=== PATIENT | female | born 1960 | race Caucasian/White ===

== ENCOUNTER 2016-07-31 12:50 | Emergency (ER) | payer MEDICARE ==
--- NOTE | 2016-07-31 13:37 | ER Document Report ---
ED Medical Screen (RME) - General Stated Complaint: BACK PAIN Notes: onset: on/off starting right flank pain with radiation to her groin nausea, diarrhea urinating less still has her gall bladder and appendix I have greeted and performed a rapid initial assessment of this patient. A comprehensive ED assessment and evaluation of the patient, analysis of test results and completion of the medical decision making process will be conducted by additional ED providers. TRAVEL OUTSIDE OF THE [place] IN LAST 30 DAYS: No - Related Data Allergies/Adverse Reactions: chlorpheniramine maleate [From Decongest Multi-Action] Allergy (Verified 13:36) cyclobenzaprine HCl [From Flexeril] Allergy (Verified 07/31/16 13:36) pseudoephedrine HCl [From Decongest Multi-Action] Allergy (Verified 07/31/16 13: 36) Past Medical History - Past Medical History Cardiac Medical History: Reports: Hx Hypertension Renal/ Medical History: Reports: Hx Kidney Stones Musculoskeltal Medical History: Reports Hx Arthritis, Reports Hx Musculoskeletal Deformity, Reports Hx Musculoskeletal Trauma Traumatic Medical History: Reports: Hx Fractures Past Surgical History: Reports: Hx Abdominal Surgery - hernia repair with mesh, Hx Orthopedic Surgery - back x2 - Immunizations Immunizations up to date: Yes Hx Diphtheria, Pertussis, Tetanus Vaccination: Yes Physical Exam - Vital signs Vitals: Temp Pulse Resp BP Pulse Ox 98.0 F 59 L 20 118/82 98 07/31/16 13:31 07/31/16 13:31 07/31/16 13:31 07/31/16 13:31 07/31/16 13:31 Course - Vital Signs Vital signs: Temp Pulse Resp BP Pulse Ox 98.0 F 59 L 20 118/82 98 07/31/16 13:31 07/31/16 13:31 07/31/16 13:31 07/31/16 13:31 07/31/16 13:31
[2016-07-31 14:17] LABS: APPEARANCE,URINE SLIGHTLY-CLOUDY; BILIRUBIN,URINE NEGATIVE (NEGATIVE); GLUCOSE, URINE NEGATIVE (NEGATIVE); KETONES,URINE NEGATIVE (NEGATIVE); LEUKOCYTE ESTERASE,URINE NEGATIVE (NEGATIVE); NITRITE,URINE NEGATIVE (NEGATIVE); PROTEIN,URINE NEGATIVE (NEGATIVE); UROBILINOGEN,URINE NEGATIVE mg/dL (<2.0)
--- NOTE | 2016-07-31 15:53 | ER Document Report ---
[id number] Patient TRAVEL OUTSIDE OF THE [place] IN LAST 30 DAYS: No - HPI Patient complains to provider of: Pain, Upper back. No: Injury Timing: Constant Quality of pain: Sharp Severity: None Associated symptoms: None Exacerbated by: Cough/deep breaths, Movement of trunk - General Chief Complaint: Abdominal Pain Stated Complaint: BACK PAIN Notes: Patient is a 56-year-old female that presents to the emergency department today with complaints of right upper back pain radiating around to the front. Patient states her pain started 5 days ago and she describes the pain as a stabbing sensation. Patient states the pain is constant. Patient states the pain is reproducible with breathing and movements. Patient states she has a history of kidney stones, with her last one being in 1996 and the pain was similar today to when she was diagnosed with the kidney stone. Patient does state she had a recent sinus infection and bronchitis and she was coughing a lot recently. Patient states she called her triage nurse at her doctor's office today and they told her to come to the emergency department today. Patient states she has chronic low back pain with multiple back surgeries. Patient denies any vomiting, history of shingles, urinary symptoms, diarrhea, hematuria, or back trauma. (LUPILLO SANDERS) - Related Data Allergies/Adverse Reactions: chlorpheniramine maleate [From Decongest Multi-Action] Allergy (Verified 13:36) cyclobenzaprine HCl [From Flexeril] Allergy (Verified 07/31/16 13:36) pseudoephedrine HCl [From Decongest Multi-Action] Allergy (Verified 07/31/16 13: 36) Past Medical History - General Information source: Patient, [facility] Records - Social History Smoking Status: Current Every Day Smoker Cigarette use (# per day): Yes Chew tobacco use (# tins/day): No Frequency of alcohol use: None Drug Abuse: None Lives with: Alone Family History: Reviewed & Not Pertinent Patient has suicidal ideation: No Patient has homicidal ideation: No - Past Medical History Cardiac Medical History: Reports: Hx Hypertension Renal/ Medical History: Reports: Hx Kidney Stones Musculoskeltal Medical History: Reports Hx Arthritis, Reports Hx Musculoskeletal Deformity, Reports Hx Musculoskeletal Trauma Traumatic Medical History: Reports: Hx Fractures Past Surgical History: Reports: Hx Abdominal Surgery - hernia repair with mesh, Hx Orthopedic Surgery - back x2 - Immunizations Immunizations up to date: Yes Hx Diphtheria, Pertussis, Tetanus Vaccination: Yes Review of Systems - Review of Systems Constitutional: No symptoms reported EENT: No symptoms reported Cardiovascular: No symptoms reported Respiratory: No symptoms reported Gastrointestinal: denies: Vomiting Genitourinary: denies: Burning, Dysuria, Discharge, Hematuria Female Genitourinary: No symptoms reported Musculoskeletal: See HPI, Back pain Skin: No symptoms reported Hematologic/Lymphatic: No symptoms reported Neurological/Psychological: No symptoms reported -: Yes All other systems reviewed and negative Physical Exam - Vital signs Vitals: Temp Pulse Resp BP Pulse Ox 98.0 F 59 L 20 118/82 98 07/31/16 13:31 07/31/16 13:31 07/31/16 13:31 07/31/16 13:31 07/31/16 13:31 (LUPILLO SANDERS) (EDUARDO MORGAN) - Notes Notes: Physical Exam: General: Alert, appears well. HEENT: Normocephalic. Atraumatic. PERRL. Extraocular movements intact. Oropharynx clear. Neck: Supple. Respiratory: No respiratory distress. Abdominal: Normal Inspection. No distension. Back: Paraspinal tenderness with palpation over T8-T9 on the right. Reproducible pain. No step offs or deformities. Extremities: Moves all four extremities. Neurological: Normal cognition. AAOx4. Normal speech. Psychological: Normal affect. Normal Mood. Skin: Warm. Dry. Normal color. (LUPILLO SANDERS) Course - Re-evaluation Re-evalutation: 07/31/16 16:10 I personally performed the services described in the documentation, reviewed and edited the documentation which was dictated to my scribe in my presence, and it accurately records my words and actions. Patient presents to the emergency department with a several day history of parathoracic tenderness coming around the chest wall. She says she just got over a bad bronchitis was coughing extensively. She has a history of chronic low back pain and failed back surgery but no thoracic pain no recent trauma fevers chills cough difficulty breathing chest pain pressure or pleuritic chest pain. On examination pain reproducible with palpation and muscle spasm at the parathoracic on the right no signs of shingles. No midline cervical thoracic or lumbosacral tenderness APC outfront ordered urine which shows no blood also showed negative KUB. Patient with symptoms consistent with a thoracic strain we will DC on Flexeril 1 day follow-up primary care physician and discussed reasons for ED return sooner I do not see an immediate reason for a CAT scan either of the chest or abdomen. Discussed reasons for ED return sooner (EDUARDO MORGAN) - Vital Signs Vital signs: Temp Pulse Resp BP Pulse Ox 98.0 F 64 18 132/81 H 98 07/31/16 16:30 07/31/16 16:30 07/31/16 16:30 07/31/16 16:30 07/31/16 16:30 (LUPILLO SANDERS) (EDUARDO MORGAN) Discharge - Discharge Clinical Impression: Thoracic back pain Qualifiers: Chronicity: acute Back pain laterality: right Qualified Code(s): M54.6 - Pain in thoracic spine Condition: Stable Disposition: HOME, SELF-CARE Additional Instructions: Upper Back Strain You have a strain of the upper back. "Strain" means stretching and partial tearing of muscle and tendon fibers. This can happen suddenly, such as when lifting, or can be due to chronic muscle tension. X-rays don't show back strain. X-rays are only taken if there's reason to suspect a problem in the bones. At first, you should cold-pack the painful area and rest. We often prescribe antiinflammatory medicine. If you are having muscle spasms, a muscle relaxer can help. As you begin to improve, it's important to strengthen and stretch the muscles. Your doctor will advise you on the proper care for your back at each stage in your recovery. You may be better in a few days -- or healing may take several weeks. If new symptoms develop ( such as radiation of pain, numbness, weakness, or tingling) occur, you should be re-examined. Further testing may be necessary. Prescriptions: Methocarbamol [Robaxin 500 mg Tablet] 500 mg PO BID #12 tablet Scribe Documentation - Scribe Written by Scribmarce:: Harman (LUPILLO SANDERS)
[2016-07-31 16:31] VITALS: BP 132/81
== END 2016-07-31 16:31 | disposition home or self-care (01) ==
LOC: ER 12:50
DX: M54.6 Pain in thoracic spine (principal); M62.830 Muscle spasm of back; R05 Cough; I10 Essential (primary) hypertension; F17.210 Nicotine dependence, cigarettes, uncomplicated; M54.5 Low back pain; G89.29 Other chronic pain; Z98.890 Other specified postprocedural states; Z88.8 Allergy status to other drugs, medicaments and biological substances; Z87.442 Personal history of urinary calculi
CPT/HCPCS: 74000; 81001; 99284

== ENCOUNTER 2017-10-04 15:34 | Emergency (ER) | payer MEDICARE, MEDICAID ==
[2017-10-04 16:51] VITALS: BP 110/72
--- NOTE | 2017-10-04 16:51 | ER Document Report ---
ED Allergic Reaction - General Chief Complaint: Allergic Reaction Stated Complaint: POSSIBLE ALLERGIC REACTION Time Seen by Provider: 10/04/17 16:31 Mode of Arrival: Ambulatory Information source: Patient Notes: 57-year-old female presents to ED for complaint of allergic reaction. She states she bought some soft that she has been using since last week and did not realize it had oregano in it. 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 She states that she went to the urgent care for difficulty speaking difficulty breathing and scratchy throat with tightness and hives. She states that there are gave her Benadryl Zantac and a steroid shot. She states that she had been taken Benadryl since Sunday when the hives started. Patient states she has hydroxyzine at home and have been using it at nighttime trying to sleep and has not been able to sleep due to the itching. Patient was alert oriented respirations even and unlabored speaking in full sentences in fact very verbal unable to assess most questions because she continues to talk. There is no shortness of breath. Patient standing and walking around in the room. TRAVEL OUTSIDE OF THE [place] IN LAST 30 DAYS: No - HPI Onset: Last week Onset/Duration: Intermittent Quality of pain: No pain Severity: None Pain Level: Denies Identified cause: Possibly - Oregano Skin rash / itching: Trunk, Extremities, "Redness", "Hives" Swelling: Lip(s) - Patient states she had some swelling to the lips tongue and throat there is no swelling to the lips tongue or throat at this time Associated symptoms: None Recent Illness: Fever Similar symptoms previously: Yes Recently seen / treated by doctor: Yes - Related Data Allergies/Adverse Reactions: oregano Allergy (Verified 10/04/17 15:43) Past Medical History - General Information source: Patient - Social History Smoking Status: Current Every Day Smoker Cigarette use (# per day): Yes - Half a pack a day Chew tobacco use (# tins/day): No Smoking Education Provided: Yes - 4 minutes Frequency of alcohol use: None Drug Abuse: None Occupation: Disability Lives with: Alone Family History: Reviewed & Not Pertinent Patient has suicidal ideation: No Patient has homicidal ideation: No - Past Medical History Cardiac Medical History: Reports: Hx Hypertension Pulmonary Medical History: Reports: None EENT Medical History: Reports: None Neurological Medical History: Reports: None Endocrine Medical History: Reports: None Renal/ Medical History: Reports: Hx Kidney Stones Malignancy Medical History: Reports: None GI Medical History: Reports: None Musculoskeltal Medical History: Reports Hx Arthritis, Reports Hx Musculoskeletal Deformity, Reports Hx Musculoskeletal Trauma Skin Medical History: Reports None Psychiatric Medical History: Reports: None Traumatic Medical History: Reports: Hx Fractures Infectious Medical History: Reports: None Past Surgical History: Reports: Hx Abdominal Surgery - hernia repair with mesh, Hx Orthopedic Surgery - back x2 - Immunizations Immunizations up to date: Yes Hx Diphtheria, Pertussis, Tetanus Vaccination: Yes Review of Systems - Review of Systems Constitutional: No symptoms reported EENT: No symptoms reported Cardiovascular: No symptoms reported Respiratory: No symptoms reported Gastrointestinal: No symptoms reported Genitourinary: No symptoms reported Female Genitourinary: No symptoms reported Musculoskeletal: No symptoms reported Skin: No symptoms reported Hematologic/Lymphatic: No symptoms reported Neurological/Psychological: No symptoms reported -: Yes All other systems reviewed and negative Physical Exam - Vital signs Vitals: Temp Pulse Resp BP Pulse Ox 97.8 F 64 16 110/75 94 10/04/17 15:46 10/04/17 15:46 10/04/17 15:46 10/04/17 15:46 10/04/17 15:46 Interpretation: Normal - General General appearance: Appears well, Alert - HEENT Head: Normocephalic, Atraumatic Eyes: Normal Pupils: PERRL Ears: Normal External canal: Normal Tympanic membrane: Normal Sinus: Normal Nasal: Normal Mouth/Lips: Normal. No: Angioedema, Caries, Dental fracture, Laceration, Lesions, Other Mucous membranes: Normal Pharynx: Normal. No: Blood in hypopharynx, Erythema, Exudate, Peritonsillar abscess, Post nasal drainage, Retropharyngeal abscess, Tonsillar hypertrophy, Uvular edema, Potential airway comprom. Neck: Normal - Respiratory Respiratory status: No respiratory distress Chest status: Nontender Breath sounds: Normal Chest palpation: Normal - Cardiovascular Rhythm: Regular Heart sounds: Normal auscultation Murmur: No - Abdominal Inspection: Normal Distension: No distension Bowel sounds: Normal Tenderness: Nontender Organomegaly: No organomegaly - Back Back: Normal, Nontender - Extremities General upper extremity: Normal inspection, Nontender, Normal color, Normal ROM , Normal temperature General lower extremity: Normal inspection, Nontender, Normal color, Normal ROM , Normal temperature, Normal weight bearing. No: Kaila's sign - Neurological Neuro grossly intact: Yes Cognition: Normal Orientation: AAOx4 Karena Coma Scale Eye Opening: Spontaneous Karena Coma Scale Verbal: Oriented [place] Coma Scale Motor: Obeys Commands [place] Coma Scale Total: 15 Speech: Normal Motor strength normal: LUE, RUE, LLE, RLE Sensory: Normal - Psychological Associated symptoms: Normal affect, Normal mood - Skin Skin Temperature: Warm Skin Moisture: Dry Skin Color: Normal Course - Re-evaluation Re-evalutation: 10/04/17 18:52 She was alert and oriented speaking in full sentences. There was no signs or symptoms of any allergic reaction at this time except for the hives on her trunk arms and legs. There is no swelling to her lips mouth face. Patient's lungs are clear to auscultation with no wheezing no shortness of breath. Patient was given a prescription for prednisone Pepcid and she states she has hydroxyzine and Benadryl at home. Patient was instructed to follow-up with her primary doctor and an animal park code enforcement officer if she continues to have symptoms. Patient was discharged home. Patient was able to verbalize understanding of instructions. - Vital Signs Vital signs: Temp Pulse Resp BP Pulse Ox 98.2 F 62 16 110/72 97 10/04/17 16:49 10/04/17 16:49 10/04/17 15:46 10/04/17 16:49 10/04/17 16:49 Discharge - Discharge Clinical Impression: Allergic urticaria Condition: Stable Disposition: HOME, SELF-CARE Additional Instructions: ACUTE ALLERGIC REACTION: Your symptoms are due to an allergic reaction. Allergy can cause hives, swelling of the hands, feet, and face, hoarseness, and difficulty swallowing or breathing. It may be due to exposure to medication, animal dander, foods, infection, or insect bites. Medication is a common cause, even when prior use of this same medication caused no problems. Acute treatment may include adrenalin and antihistamines. Usually, the specific allergic agent can't be identified unless repeated episodes occur. Home treatment includes the following: (1) Stop any suspicious medications. This will be discussed with you. (2) Oral antihistamines for the next four to five days. Example, diphenhydramine (Benadryl) every four hours. (3) You may also use cimetidine (Tagamet), ranitidine (Zantac), or famotidine ( Pepcid) every four hours if diphenhydramine is not controlling itching and hives. (4) Avoid aspirin until the hives completely disappear. (5) Avoid hot baths or showers until the hives are completely gone. Call the doctor if faintness, difficulty swallowing, tightness in the chest , or wheezing occurs. STEROID MEDICATION: You have been given a medicine of the cortisone/steroid class. This medication is used to control inflammation or allergy. It is usually only given for a short period of time, until the acute process subsides. There are usually no side effects from short-term use of cortisone-like medications. Some persons feel an increased sense of well-being and are not sleepy at bedtime. Long-term use of cortisone medications is best avoided, unless required for a severe condition. If your condition does not remit, or relapses after the course of corticosteroid medication, you should consult your physician. ACID-SUPPRESSING MEDICATION: You have a prescription for medicine which reduces the stomach's secretion of acid. Examples include Zantac, Tagament, and Pepcid. These drugs are often used to allow healing of ulcers or esophagitis. They may be needed to prevent recurrence of ulcers in some patients, or to prevent damage from acid reflux in the esophagus. Take all medication as prescribed, even after the pain is gone. Regular antacids may be added as needed if you have symptoms while taking this medicine. These medications sometimes are prescribed for allergic reactions because they have anti-histaminic effects and relieve the rash and itching of the reaction. There are usually no side effects from this medication. But, in rare cases and particularly in the elderly, serious problems can occur. Contact your doctor if there is fever, rash, hallucinations, confusion, or unusual bruising. Contact your doctor at once if you develop lightheadedness, black or bloody stool, or bloody vomitus. ANTIHISTAMINES: An antihistamine has been given and/or prescribed to control your symptoms. Antihistamines are used for many reasons, including itching, watering eyes, runny nose, allergic swelling, hives, and insect stings. Antihistamines may cause drowsiness, especially with the first dose. Do not operate machinery or drive while under the effects of the medication. Other common side effects include dry mouth and eyes. In older persons, antihistamines can occasionally cause urinary retention, constipation, and trouble focusing the eyes. Do not combine the medication with alcohol, or with any other medication without talking to your doctor. USE OF DIPHENHYDRAMINE: The use of diphenhydramine (Benadryl) has been recommended to control allergic symptoms. The 25 mg strength is available over- the-counter, as well as the elixir. This antihistamine is used for many symptoms. It's useful for itching, watering eyes and nose, allergic swelling, hives, and insect stings. The medication can be repeated four times daily. Age Elixir (12.5 mg/tsp) 25 mg pill 2-3 yr 1/2 tsp 4-8 yr 1 tsp 9-14 yr 2 tsp one tab adult 1-2 tabs Antihistamines may cause drowsiness, especially with the first dose. Do not operate machinery or drive while under the effects of the medication. Do not combine the medication with alcohol, or with any other medication without talking to your doctor. FOLLOW-UP CARE: If you have been referred to a physician for follow-up care, call the physician s office for an appointment as you were instructed or within the next two days. If you experience worsening or a significant change in your symptoms, notify the physician immediately or return to the Emergency Department at any time for re-evaluation. Prescriptions: Famotidine [Pepcid 40 mg Tablet] 40 mg PO BID #12 tablet Prednisone [Deltasone 20 mg Tablet] 3 tab PO DAILY 5 Days tablet Forms: Smoking Cessation Education Referrals: ROSINA JAIMES [Primary Care Provider] - Follow up as needed
== END 2017-10-04 16:53 | disposition home or self-care (01) ==
LOC: ER 15:34
DX: L50.0 Allergic urticaria (principal); F17.210 Nicotine dependence, cigarettes, uncomplicated; Z87.442 Personal history of urinary calculi
CPT/HCPCS: 99283; 99406

== ENCOUNTER → 2018-04-30 | Day surgery (SDC) | payer MEDICARE, MEDICAID ==
[~2018-04-30] MED LIST: LIDOCAINE 2% JELLY 5 ML TUBE ONE
== END ==
LOC: END 08:09
PROVIDERS: ATTEND Internal Medicine Gastroenterology
DX: R13.10 Dysphagia, unspecified (principal)
CPT/HCPCS: 91010